=== PATIENT | female | born 2005 | race Caucasian/White ===

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

== ENCOUNTER 2025-02-17 08:44 | Day surgery (SDC) | payer OTHER ==
[~2025-02-17] VITALS: Ht 165.1 cm; Wt 59.5 kg
[~2025-02-17 08:44] MED LIST: Lidocaine HCl 2% 10 ML SDA ONE
[2025-02-17] MEDS ORDERED: RIZATRIPTAN10 MG (09:24)
[2025-02-17] MEDS ORDERED: VENL25 (09:25)
[2025-02-17] MEDS ORDERED: CeFAZolin Sodium 2,000 MG VIAL ONE (09:48)
[2025-02-17] MEDS ORDERED: Midazolam HCl 1MG / ML 2ML Vial ONE (10:06)
[2025-02-17] MEDS ORDERED: Lidocaine HCl 2% 10 ML SDA ONE (10:38)
--- NOTE | 2025-02-17 10:38 | NUR ---
02/17/25 1038 Arthur Mariscal NO 3 LEAD MONITORING PER ANESTHESIA
[2025-02-17 11:02] VITALS: BP 103/73
--- NOTE | 2025-02-17 11:43 | NUR ---
02/17/25 1143 Arthur Mariscal PT DENIES PAIN AND NAUSEA AT THIS TIME. PT AGREEABLE TO D/C HOME WITH HER GRANDMOTHER.
== END 2025-02-17 11:43 | disposition home or self-care (01) ==
LOC: ORSCSDS 08:44
PROVIDERS: Orthopaedic Surgery
PROC: 0JBH0ZZ Excision of Left Lower Arm Subcutaneous Tissue and Fascia, Open Approach (ICD-10-PCS; principal; 2025-02-17 10:30)
DX: D17.22 Benign lipomatous neoplasm of skin and subcutaneous tissue of left arm (principal); F32.A Depression, unspecified; F41.9 Anxiety disorder, unspecified; Z79.899 Other long term (current) drug therapy
CPT/HCPCS: 88304; J0690; J2003; J2250; J2704; J7120

== ENCOUNTER 2025-04-06 23:22 | Emergency (ER) | payer OTHER ==
[~2025-04-06] VITALS: Ht 165.1 cm; Wt 61.2 kg
[~2025-04-06 23:22] MED LIST changes: -Lidocaine HCl 2% 10 ML SDA ONE; +RIZATRIPTAN10 MG; +VENL25
[2025-04-07] MEDS ORDERED: Ketorolac Tromethamine 15mg Vial IV ONE (01:50)
[2025-04-07] MEDS ORDERED: NS 1,000 ML IV SCH (01:50)
[2025-04-07 03:18] VITALS: BP 105/68
== END 2025-04-07 03:19 | disposition home or self-care (01) ==
LOC: ER 23:22
DX: R06.02 Shortness of breath (principal); E86.0 Dehydration; G43.909 Migraine, unspecified, not intractable, without status migrainosus
CPT/HCPCS: 96374; 99282-25; A9270; J1885; J7030